=== PATIENT | female | born 1950 | race Caucasian/White ===

== ENCOUNTER 2016-10-04 10:28 | Emergency (ER) | payer MEDICARE ==
[~2016-10-04] VITALS: Ht 172.7 cm; Wt 84.6 kg
[2016-10-04] MEDS ORDERED: SODIUM CHLORIDE FLUSH 10ML SYR IVF ONE (11:30)
[2016-10-04] MEDS ORDERED: ONDANSETRON 2MG/ML, 2ML IVPush ONE (11:30)
[2016-10-04] MEDS ORDERED: KETOROLAC 30 MG/1 ML IVPush ONE ×2 (11:30→17:30)
[2016-10-04] MEDS ORDERED: MORPHINE SULFATE 4 MG/ML, 1ML IVPush PRN (11:30)
[2016-10-04 11:38] LABS: HEMOGLOBIN 13.1 g/dL (11.7-16.4)
[2016-10-04] MEDS ORDERED: ONDANSETRON 2MG/ML, 2ML ONE (11:42)
[2016-10-04] MEDS ORDERED: MORPHINE SULFATE 4 MG/ML, 1ML ONE (11:42)
[2016-10-04] MEDS ORDERED: KETOROLAC 30 MG/1 ML ONE ×2 (11:42→16:38)
[2016-10-04 11:46] LABS: BLOOD UREA NITROGEN 9 mg/dL (7-18)
[2016-10-04] MEDS ORDERED: SODIUM CHLORIDE 0.9%, 500ML IVBOLUS ONE (13:00)
[2016-10-04 17:04] VITALS: BP 133/76
== END 2016-10-04 17:07 | disposition home or self-care (01) ==
LOC: ED 13:14
DX: R10.9 Unspecified abdominal pain (principal); Z87.442 Personal history of urinary calculi; Z98.890 Other specified postprocedural states
CPT/HCPCS: 36415; 74176; 80048; 81003; 82040; 85025; 96361; 96374; 96375; 99285; J1885; J2405; J7040

== ENCOUNTER → 2016-11-09 | Outpatient (CLI) | payer MEDICARE ==
[~2016-11-09] MED LIST: GADOBUTROL 10 MMOL/10 ML VIAL ONE
== END | disposition home or self-care (01) ==
LOC: CFH 14:32
PROVIDERS: ATTEND Internal Medicine Gastroenterology
DX: K76.0 Fatty (change of) liver, not elsewhere classified (principal); N28.1 Cyst of kidney, acquired; K76.89 Other specified diseases of liver; J98.11 Atelectasis; R16.0 Hepatomegaly, not elsewhere classified; D25.9 Leiomyoma of uterus, unspecified; K57.30 Diverticulosis of large intestine without perforation or abscess without bleeding; M47.896 Other spondylosis, lumbar region
CPT/HCPCS: 72197; 74183; A9585

== ENCOUNTER → 2017-08-08 | Outpatient (CLI) | payer MEDICARE | END | disposition home or self-care (01) | LOC: RAD 09:51 | PROVIDERS: ATTEND Internal Medicine | DX: E21.3 Hyperparathyroidism, unspecified (principal) | CPT/HCPCS: 78070; A9500 ==

== ENCOUNTER → 2017-10-31 | Outpatient (CLI) | payer MEDICARE ==
[~2017-10-31] MED LIST changes: +CHOL500045 PO; -GADOBUTROL 10 MMOL/10 ML VIAL ONE; +MULT-658 PO; +OMEG1CAP30 PO
== END | disposition home or self-care (01) ==
LOC: STAR 10:10
PROVIDERS: ATTEND Surgery
DX: Z01.818 Encounter for other preprocedural examination (principal)
CPT/HCPCS: 93005

== ENCOUNTER 2017-11-07 06:07 | Day surgery (SDC) | payer MEDICARE ==
[2017-10-31 10:44] VITALS: BP 121/80
[~2017-11-07] VITALS: Ht 172.7 cm; Wt 84.0 kg
[2017-11-07] MEDS ORDERED: BUPIVACAINE/PF 0.5% ONE (06:27)
[2017-11-07] MEDS ORDERED: EPINEPHRINE 1 MG/ML, 1ML ONE (06:27)
[2017-11-07] MEDS ORDERED: LACTATED RINGERS 1,000 ML IV SCH (07:10)
[2017-11-07 07:12] VITALS: BP 121/80
[2017-11-07] MEDS ORDERED: LIDOCAINE-MPF 1%, 2ML INFIL ONE (07:30)
[2017-11-07] MEDS ORDERED: MIDAZOLAM 1 MG/ML, 2ML ONE (07:41)
[2017-11-07] MEDS ORDERED: FENTANYL PF 250 MCG/5ML ONE (07:42)
[2017-11-07] MEDS ORDERED: CEFAZOLIN 1,000 MG ONE (08:14)
[2017-11-07] MEDS ORDERED: PROPOFOL 10 MG/ML, 20ML ONE (08:14)
[2017-11-07] MEDS ORDERED: ONDANSETRON 2MG/ML, 2ML ONE (08:14)
[2017-11-07] MEDS ORDERED: DEXAMETHASONE 4 MG/ML, 5ML ONE (08:14)
[2017-11-07] MEDS ORDERED: METOPROLOL 1 MG/ML, 5ML ONE (08:14)
[2017-11-07] MEDS ORDERED: hydrALAzine 20 MG/ML, 1ML ONE (08:14)
[2017-11-07] MEDS ORDERED: ROCURONIUM 10 MG/ML,10ML ONE (08:14)
[2017-11-07] MEDS ORDERED: HYDROmorphone 1 MG/ML, 1ML IV PRN (09:00)
[2017-11-07] MEDS ORDERED: PROMETHAZINE 12.5 MG SUPP PR PRN (09:00)
[2017-11-07] MEDS ORDERED: hydrALAzine 20 MG/ML, 1ML IV PRN (09:00)
[2017-11-07] MEDS ORDERED: ALBUTEROL SULFATE 2.5 MG/3 ML NPPB PRN (09:00)
[2017-11-07] MEDS ORDERED: ACETAMINOPHEN 325 MG TABLET PO PRN (09:00)
[2017-11-07] MEDS ORDERED: LORazepam 2 MG/ML, 1ML IVPush PRN (09:00)
[2017-11-07] MEDS ORDERED: morphine SULFATE 10 MG/ML, 1ML IV PRN (09:00)
[2017-11-07] MEDS ORDERED: OXYcodone 5 MG/5 ML ORAL.SOL UDC PO PRN (09:00)
[2017-11-07] MEDS ORDERED: LABETALOL 5MG/ML, 20ML IV PRN (09:00)
[2017-11-07] MEDS ORDERED: PROMETHAZINE 25 MG/ML, 1ML IV PRN (09:00)
[2017-11-07 10:01] LABS: 10MIN %DROP IOPTH 46 %; 5MIN %DROP IOPTH 47 %; IOPTH BASELINE 116 pg/mL
[2017-11-07 10:02] LABS: SAMPLE 5 %DROP IOPTH 72 %
[2017-11-07] MEDS ORDERED: ACETAMINOPHEN 650 MG/20.3 ML UDC ONE (10:21)
[2017-11-07] MEDS ORDERED: OXYcodone 5 MG/5 ML ORAL.SOL UDC ONE (10:21)
[2017-11-07] MEDS ORDERED: FENTANYL PF 100 MCG/2ML ONE (10:22)
[2017-11-07] MEDS: FENTANYL PF 100 MCG/2ML IV PRN ×2 (10:25→10:45)
[2017-11-07 10:42] LABS: SAMPLE 6 %DROP IOPTH 74 %
== END 2017-11-07 16:30 ==
LOC: OUT 06:07
PROVIDERS: ATTEND Surgery
DX: E21.0 Primary hyperparathyroidism (principal)
CPT/HCPCS: 36415; 60500; 83970; 88305; 88331; J0360; J0690; J1100; J2250; J2405; J2704; J3010; J3490; J7120; J0171; C1760

== ENCOUNTER 2018-01-04 12:11 | Inpatient (IN) | payer MEDICARE ==
[~2018-01-04] VITALS: Ht 172.7 cm; Wt 90.9 kg
[~2018-01-04 12:11] MED LIST changes: +BUPIVACAINE 0.25% ONE; +EPINEPHRINE 1 MG/ML, 1ML ONE
[2018-01-04] MEDS ORDERED: LACTATED RINGERS 1,000 ML IV SCH (12:50)
[2018-01-04] MEDS ORDERED: CALC-525 PO (13:21)
[2018-01-04 13:22] VITALS: BP 139/87
[2018-01-04] MEDS ORDERED: FENTANYL PF 250 MCG/5ML ONE (13:47)
[2018-01-04] MEDS ORDERED: MIDAZOLAM 1 MG/ML, 2ML ONE (13:47)
[2018-01-04] MEDS ORDERED: GLYCOPYRROLATE 0.2MG/1ML, 5ML ONE (13:49)
[2018-01-04] MEDS ORDERED: DEXAMETHASONE 4 MG/ML, 1ML ONE (13:49)
[2018-01-04] MEDS ORDERED: SUCCINYLCHOLINE 20 MG/ML, 10ML ONE (13:49)
[2018-01-04] MEDS ORDERED: NEOSTIGMINE 1 MG/ML, 10ML ONE (13:49)
[2018-01-04] MEDS ORDERED: CEFAZOLIN 1,000 MG ONE (13:49)
[2018-01-04] MEDS ORDERED: ONDANSETRON 2MG/ML, 2ML ONE (13:49)
[2018-01-04] MEDS ORDERED: PROPOFOL 10 MG/ML, 20ML ONE (13:49)
[2018-01-04] MEDS ORDERED: LIDOCAINE PF 2%, 5ML ONE (13:57)
[2018-01-04] MEDS ORDERED: ROCURONIUM 10 MG/ML,10ML ONE (13:57)
[2018-01-04] MEDS ORDERED: HYDROcodone/APAP 7.5-325MG/15ML UDC PO PRN (14:30)
[2018-01-04] MEDS ORDERED: ONDANSETRON ODT 8 MG PO PRN (14:30)
[2018-01-04] MEDS ORDERED: PROMETHAZINE 25 MG/ML, 1ML IV PRN (14:30)
[2018-01-04] MEDS ORDERED: ACETAMINOPHEN 325 MG TABLET PO PRN (14:30)
[2018-01-04] MEDS ORDERED: OXYcodone 5 MG/5 ML ORAL.SOL UDC PO PRN (14:30)
[2018-01-04] MEDS ORDERED: FENTANYL PF 100 MCG/2ML IV PRN (14:30)
[2018-01-04] MEDS ORDERED: FENTANYL PF 100 MCG/2ML ONE (15:02)
[2018-01-04] MEDS ORDERED: morphine SULFATE 10 MG/ML, 1ML ONE (15:50)
[2018-01-04] MEDS ORDERED: OXYcodone 5 MG/5 ML ORAL.SOL UDC ONE (15:50)
[2018-01-04] MEDS: MORPHINE SULFATE 4 MG/ML, 1ML IVPush PRN ×3 (15:55→16:52)
[2018-01-04] MEDS ORDERED: ACETAMINOPHEN 650 MG/20.3 ML UDC ONE (16:24)
[2018-01-04] MEDS ORDERED: ACETAMINOPHEN 500 MG TABLET PO ONE (16:30)
[2018-01-04] MEDS ORDERED: POTASSIUM CHLORIDE 20 MEQ in D5%-0.45% NACL 1,000 ML IV SCH (19:00)
[2018-01-04] MEDS ORDERED: ONDANSETRON 2MG/ML, 2ML IV PRN (19:00)
[2018-01-04] MEDS ORDERED: LACTATED RINGERS 500 ML IV PRN (19:00)
[2018-01-04] MEDS ORDERED: OXYcodone IR 5MG TABLET PO PRN ×2 (19:30→20:00)
[2018-01-04] MEDS ORDERED: IBUPROFEN 200 MG TABLET PO SCH (19:30)
[2018-01-04] MEDS ORDERED: KETOROLAC 30 MG/1 ML ONE (19:37)
[2018-01-04] MEDS: KETOROLAC 30 MG/1 ML IVPush SCH (19:41)
[2018-01-04 19:57] VITALS: BP 137/86
[2018-01-04] MEDS: CALCIUM/VITAMIN D3 250-125 TABLET PO SCH (20:41)
[2018-01-04] MEDS: ACETAMINOPHEN 500 MG TABLET PO SCH (22:09)
[2018-01-04] MEDS: CEFAZOLIN PMX 2GM/50ML 50 ML IVPB SCH (22:09)
[2018-01-05] MEDS: ACETAMINOPHEN 500 MG TABLET PO SCH ×5 (00:05→14:07)
[2018-01-05 00:29] VITALS: BP 108/67
[2018-01-05] MEDS: KETOROLAC 30 MG/1 ML IVPush SCH ×2 (01:55→08:00)
[2018-01-05 04:26] VITALS: BP 104/61
[2018-01-05] MEDS: CEFAZOLIN PMX 2GM/50ML 50 ML IVPB SCH (06:06)
[2018-01-05 07:06] VITALS: BP 103/65
[2018-01-05] MEDS ORDERED: ENOXAPARIN 40 MG/0.4 ML SQ SCH (08:00)
[2018-01-05] MEDS ORDERED: CHOLECALCIFEROL 1,000 UNIT TABLET PO SCH (09:00)
[2018-01-05] MEDS ORDERED: OMEGA-3/FISH OIL CAPSULE PO SCH (09:00)
[2018-01-05] MEDS ORDERED: IBUPROFEN 600 MG TABLET PO SCH (09:00)
[2018-01-05] MEDS ORDERED: MULTIVITAMIN 1 TABLET PO SCH (09:00)
[2018-01-05] MEDS: CALCIUM/VITAMIN D3 250-125 TABLET PO SCH (09:00)
[2018-01-05] MEDS ORDERED: IBUPROFEN 600 MG TABLET ONE (10:01)
[2018-01-05] MEDS ORDERED: PNEUMOCOCCAL VACC.PER PHARMACY IM ONE (12:00)
[2018-01-05] MEDS ORDERED: PNEUMOCOCCAL 23 VACCINE IM-VACC ONE (12:30)
[2018-01-05 14:15] VITALS: BP 100/53
[2018-01-05] MEDS ORDERED: IBUP-1223 PO (15:53)
[2018-01-05] MEDS ORDERED: OXYC5CAP2 PO (15:53)
[2018-01-10] MEDS ORDERED: IBUPROFEN 600 MG TABLET PO SCH (09:00)
== END 2018-01-05 16:03 | disposition home or self-care (01) | DRG 983 ==
LOC: ORIP 12:11 → 4NOR 17:17 → DCLOUNGE 01-05 15:45
PROVIDERS: ADMIT Surgery; ATTEND Surgery
PROC: 0BBC4ZZ Excision of Right Upper Lung Lobe, Percutaneous Endoscopic Approach (ICD-10-PCS; principal; 2018-01-04 14:00)
DX: M31.30 Wegener's granulomatosis without renal involvement (principal); Z88.5 Allergy status to narcotic agent; Z91.041 Radiographic dye allergy status
CPT/HCPCS: 71045; 88307; 88312; C1729; J0171; J0690; J1100; J1650; J1885; J2250; J2405; J2704; J2710; J3010; J3480; J3490; C1760; J0330; J7120